=== PATIENT | male | born 1940 | race Two or more races ===

== ENCOUNTER → 2017-03-08 | Outpatient (CLI) | payer MEDICARE ==
--- NOTE | 2017-03-08 12:34 | DIREP ---
PROCEDURE:US DOPPLER CAROTID BILATERAL COMPARISON:None. 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 FINDINGS: PEAK FLOW VELOCITIES (cm/sec) RIGHT CCA:79 RIGHT ICA: PROX:72 MID:87 DIST:100 RIGHT ECA:84 RIGHT ICA/CCA:1.3 RIGHT VERTEBRAL:Antegrade IMAGES:There is plaque at the distal CCA, ECA origin, and ICA origin without a hemodynamically significant stenosis. LEFT CCA:87 LEFT ICA: PROX:78 MID:67 DIST:111 LEFT ECA:74 LEFT ICA/CCA:1.3 LEFT VERTEBRAL:Antegrade IMAGES:There is plaque at the distal CCA, ICA origin and ECA origin without a hemodynamically significant stenosis. CONCLUSION: 1. Mild bilateral plaque but no hemodynamically significant stenosis. 2. Incidentally noted thyroid nodules. Recommend thyroid ultrasound characterization. Diameter Stenosis (%)ICA Peak Systolic Velocity (cm/s)ICA/CCA RatioNormal<125<2.0<50<125<[id number]>2-470 to near occlusion>230>4J Ultrasound Med 2005; 24:6984-8473 Dictated by: Judson Lincoln M.D. on 03/08/2017 at 12:29 PM
== END | disposition home or self-care (01) ==
LOC: RAD 09:03
PROVIDERS: ATTEND Internal Medicine
DX: I65.23 Occlusion and stenosis of bilateral carotid arteries (principal); E04.2 Nontoxic multinodular goiter
CPT/HCPCS: 93880

== ENCOUNTER → 2017-07-09 | Outpatient (CLI) | payer MEDICARE ==
[~2017-07-09] VITALS: Ht 172.7 cm; Wt 96.6 kg
[~2017-07-09] MED LIST: LEXISCAN IV ONE
--- NOTE | 2017-07-10 11:48 | STRESS ---
DATE OF SERVICE: 07/09/2017 STRESS TEST WITH NUCLEAR IMAGING STUDY INDICATIONS: A 77-year-old gentleman with history of CABG, followed by PCI, history of congestive heart failure. He is requesting cardiac evaluation for symptoms of shortness of breath and the patient has been requested to have a stress test by Department of Transportation criteria to resume driving capacity. The patient presented to the Stress Lab in a fasting condition, signed a proper consent. Baseline blood pressure was 153/78, heart rate of 54, sinus bradycardia. EKG showed sinus rhythm with bundle branch block. The patient was injected 0.4 mg for regadenoson followed by the stress dose of technetium sestamibi. One minute post-infusion, blood pressure was 150/57, heart rate of 88. The patient remained asymptomatic. No ST changes of ischemia noted, no arrhythmia and the recovery phase was uneventful. The patient reported no symptoms. Myocardial perfusion imaging study using technetium sestamibi in the same day stress/rest protocol showed the followin. Study quality was good with attenuation artifacts corrected partially with prone position. 2. LV cavity showed significant transient ischemic dilatation of ischemia. 3. Myocardial perfusion imaging study showed 2 large perfusion defects in the anterior wall and inferior wall with lateral involvement. Those perfusion defects were reversible. 4. SPECT gated function study showed severe LV dysfunction, EF 30%, stroke volume 44 mL with global and segmental hypokinesia. IMPRESSION: 1. Nondiagnostic stress portion of Lexiscan. 2. No EKG changes of ischemia. 3. No arrhythmia. 4. Hemodynamic response was normal. 5. Myocardial perfusion imaging study was very abnormal with the following findings: 1. Transient ischemic dilatation. 2. Anterior, inferior and lateral perfusion defects of ischemia. 3. Severe LV dysfunction with multiple wall motion segmental abnormality. 4. EF 30%. 5. The study qualifies for high risk for obstructive coronary artery disease. Coronary angiography is highly recommended. Lalo Wilhelm MD DR: KAMLESH/bernadette JOB# [id number]
== END | disposition home or self-care (01) ==
LOC: NM 10:04
PROVIDERS: ATTEND Internal Medicine
DX: I25.10 Atherosclerotic heart disease of native coronary artery without angina pectoris (principal); I50.9 Heart failure, unspecified; I99.8 Other disorder of circulatory system; Z95.1 Presence of aortocoronary bypass graft
CPT/HCPCS: 78452; 93017; A9500; J2785

== ENCOUNTER 2017-07-18 00:45 | Day surgery (SDC) | payer MEDICARE ==
[~2017-07-18] VITALS: Ht 172.7 cm; Wt 96.6 kg
[2017-07-18] VITALS (9 sets, daily range): BP systolic 157–178; BP diastolic 63–72
[~2017-07-18 00:45] MED LIST changes: +ASPI-484 PO; +CARV6.25 PO; +GLIM2TAB2 PO; -LEXISCAN IV ONE; +METF10002 PO; +RAMI10CA PO; +SIMV40TA3 PO
[2017-07-18] MEDS ORDERED: NITROGLYCERIN 25MG/D5W 250ML 250 ML IV ONE (06:27)
[2017-07-18] MEDS ORDERED: SUBLIMAZE ONE (06:27)
[2017-07-18] MEDS ORDERED: VERSED ONE (06:27)
[2017-07-18] MEDS ORDERED: HEPARIN ONE (06:28)
[2017-07-18] MEDS ORDERED: CALAN ONE (06:28)
[2017-07-18] MEDS ORDERED: XYLOCAINE ONE (06:29)
[2017-07-18] MEDS ORDERED: NS 1000ML 1,000 ML ONE (06:37)
[2017-07-18] MEDS ORDERED: BENADRYL PO ONE ×2 (07:33→09:00)
[2017-07-18 07:48] LABS: BASOPHIL % 0.2 % (0.0-0.2); EOSINOPHIL # 0.5 10^3/uL (0.0-0.2); HEMOGLOBIN 9.9 g/dL (13.9-16.3); LYMPHOCYTES # 1.7 10^3/uL (1.0-4.8); LYMPHOCYTES % 18.8 % (24.0-44.0); MEAN CORP VOLUME 90.6 fL (78-100); MEAN PLATELET VOLUME 9.1 fL (7.8-11.0); MONOCYTES # 0.7 10^3/uL (0.3-0.8); MONOCYTES % 7.6 % (5.0-12.0); NEUTROPHIL # 6.3 10^3/uL (1.8-7.7); NEUTROPHILS % 68.2 % (41.0-85.0); PLATELET COUNT 214 10^3/uL (150-400); RED CELL DISTRIBUTION WIDTH 13.3 % (11.5-14.5); WHITE BLOOD CELL 9.2 10^3/uL (4.5-11.0)
[2017-07-18 07:56] LABS: CALCIUM 9.5 mg/dL (8.4-10.5); CARBON DIOXIDE 25.2 mmol/L (20.0-32)
[2017-07-18] MEDS ORDERED: NS FLUSH ONE (11:42)
--- NOTE | 2017-07-18 14:23 | [facility] ---
DATE OF SERVICE: 07/18/2017 PROCEDURES PERFORMED: 1. Left heart catheterization via right common femoral artery access. 2. Selective coronary angiography, left and right. 3. Left ventricular end-diastolic pressure measurement. 4. Left ventriculography. 5. Selective angiography of the saphenous vein grafts x 2. 6. Selective angiography of left internal mammary artery. 7. Right femoral angiography. COMPLICATIONS: None. BLOOD LOSS: Minimal, less than 15 mL of blood. INDICATIONS: The patient is a 77-year-old gentleman with history of coronary artery bypass graft x 3, 4 years ago, congestive heart failure, frequent multiple PCIs before the surgical bypass revascularization. He was examined with stress test on 07/09/2017 for symptoms of shortness of breath and for evaluation by the Department of Transportation. The stress test was abnormal with the following findings: Transient ischemic dilatation, anterior, inferior and lateral perfusion defects and LV dysfunction with EF around 30%. Therefore, the patient was elected for coronary angiography and possible intervention. He presented to the [facility] in a fasting condition, signed a proper consent. All risks and benefits were explained. All questions were answered. Lab results were reviewed and allergies verified. Creatinine 1.4. DESCRIPTION OF PROCEDURE: The patient was taken to the [facility] in a fasting condition. The right groin area was prepped and draped and sterilized, 1% lidocaine was used for local analgesia. A micropuncture technique was utilized to gain access into the right femoral artery followed by advancing 6-Honduran sheath without difficulty. JL4 was the guide of choice to engage the left coronary system, a JR4 was the guide of choice to engage the right coronary artery as well as the 2 saphenous vein grafts and the left internal mammary artery. The LV gram was performed using a pigtail catheter, advanced over the guidewire into the LV cavity for LVEDP measurement and power injection LV gram in the [place] projection. Careful examination of coronary angiography and LV gram showed patent grafts with severe [place] disease. No opportunity for PCI was noted. LV dysfunction was remarkable. Therefore, the case was concluded with removal of the wires and catheters and application of 6-Honduran Mynx closure device after performing right femoral angiography through the 6-Honduran sheath. The case was uncomplicated, the patient left the [facility] in stable condition. No complications and he was educated as well as his on the results of coronary angiography and LV gram. HEMODYNAMICS: 1. Opening pressure 189/67, mean of 99 mmHg. 2. LVEDP was around 10 mmHg. 3. LV gram showed an EF of around 30-35% with global hypokinesia and dilated LV cavity cannot rule out old inferior wall aneurysm. 4. Ascending aorta was normal in size without acute pathology. ANGIOGRAPHIC FINDINGS: 1. The right femoral artery was free of disease, minimally calcified, the arteriotomy site was closure to the bifurcation site. 2. Left main has a proximal disease around 60-70%. The vessel supplies a very limited left coronary artery remnants. The disease in the left main is eccentric lesion around 70% in the area of stenosis. 3. LAD is totally occluded in the very proximal part after the first 2 septal branches. 4. One diagonal branch was noted from the proximal LAD, small vessel. 5. The circumflex artery was totally occluded at the ostium. 6. The right coronary artery is totally occluded at the ostium. 7. Saphenous vein graft to the obtuse marginal branch was patent with good flow, good size match and no obstructive disease. There is retrograde filling into the circumflex artery territory. 8. Saphenous vein graft to the right PDA was patent, multiple valves were seen, minimal disease, TIMI3 flow, are right posterior descending artery a small, tortuous, dominant vessel with diffuse nonobstructive disease. 9. Left internal mammary artery was patent, tortuous anastomosis site to the mid LAD was patent, TIMI3 flow in the LAD, minimal distal disease, nonocclusive with good flow, TIMI3 in the graft and distal vessel. IMPRESSION: 1. Severe [place] disease including the left main, totally occluded LAD. 2. Totally occluded circumflex artery. 3. Totally occluded RCA. 4. Patent KHALIL to LAD with good flow. 5. Patent SVG to obtuse marginal with good flow. 6. Patent SVG to the right posterior descending artery with good flow. 7. LV dysfunction, EF 35% with global hypokinesia. 8. The procedure was well tolerated. RECOMMENDATIONS: 1. Groin care. 2. Optimize medical management for ischemic cardiomyopathy. 3. No indication for coronary intervention at this point. 4. Optimize medical management to improve LV function. 5. Consider defibrillation options in the future. 6. Same day discharge once the patient meets discharge criteria. Lalo Wilhelm MD DR: Shital JOB# [id number]
== END 2017-07-18 14:10 | disposition home or self-care (01) ==
LOC: SURG 00:45
PROVIDERS: ATTEND Internal Medicine
DX: I11.0 Hypertensive heart disease with heart failure (principal); I50.9 Heart failure, unspecified; I25.10 Atherosclerotic heart disease of native coronary artery without angina pectoris; E78.00 Pure hypercholesterolemia, unspecified; M19.90 Unspecified osteoarthritis, unspecified site; I65.22 Occlusion and stenosis of left carotid artery; E78.2 Mixed hyperlipidemia; E13.69 Other specified diabetes mellitus with other specified complication; Z95.1 Presence of aortocoronary bypass graft; Z98.890 Other specified postprocedural states; F17.210 Nicotine dependence, cigarettes, uncomplicated; Z80.9 Family history of malignant neoplasm, unspecified; F15.90 Other stimulant use, unspecified, uncomplicated; Z79.84 Long term (current) use of oral hypoglycemic drugs; Z79.899 Other long term (current) drug therapy; Z95.5 Presence of coronary angioplasty implant and graft
CPT/HCPCS: 36415; 80048; 82948 ×2; 85025; 85610; 93005; 93459; 99152; C1769; C1887; C1894 ×3; J1644 ×3; J2250; J3010; J3490 ×2; J7030 ×2; Q0163; Q9967 ×2